=== PATIENT | female | born 1965 | race Caucasian/White ===

== ENCOUNTER → 2016-08-24 | Outpatient (CLI) | payer MEDICARE, BC ==
--- NOTE | 2016-08-24 20:56 | MR ---
EXAMINATION TYPE: MR lindaine/lspine wo con DATE OF EXAM: 08/24/2016 3:37 PM COMPARISON: 08/28/2014 HISTORY: 51-year-old female, neck pain, CERVICALGIA, LOW BACK PAIN TECHNIQUE: Multiplanar, multisequence images of the cervical followed by the lumbar spine were obtain ed without IV contrast. FINDINGS: CERVICAL SPINE: Mild mucosal thickening sphenoid sinus. No craniocervical junction abnormality, predental space widening, or prevertebral soft tissue swellin g. Multilevel mild degenerative disc disease with variable disc desiccation. Mild disc height loss at C5 -C6 with disc osteophyte complex formation. Scattered facet and uncovertebral joint arthropathy. Stable grade 1 retrolisthesis at C5-C6. Remainder of the alignment is maintained. Ligamentum flavum thickening lower cervical spine. No suspicious bone marrow replacement. At C2-C3, no significant spinal canal or neuroforaminal stenosis. At C3-C4, mild facet degenerative change without significant spinal canal or neuroforaminal stenosis. At C4-C5, mild facet degenerative change without significant spinal canal or neuroforaminal stenosis. At C5-C6, there is disc osteophyte complex with contiguous uncovertebral joint arthropathy. Additiona l facet degenerative change. Changes result in mild left neuroforaminal stenosis and mild spinal tamia l stenosis minimally increased from prior exam. There is slight abutment of the ventral cord without significant cord flattening. At C6-7, there is broad-based disc osteophyte complex with ligamentum flavum thickening, uncovertebra l joint and facet degenerative change. Changes result in mild narrowing of the spinal canal, minimall y worsened, with dorsal abutment of the cord but no significant cord flattening. No significant neuro foraminal stenosis. At C7-T1, mild facet degenerative change without significant spinal canal or neuroforaminal stenosis. No prevertebral or paravertebral soft tissue abnormality. Normal signal intensity of the cervical cord. LUMBAR SPINE: Vertebral body heights are preserved and alignment is maintained. Mild degenerative disc disease thro ughout, particularly at L2-L3, L3-L4 and L4-L5 where there is disc desiccation. Bulging disc that mul tiple levels. Facet degenerative change lower lumbar spine. No suspicious bone marrow replacement. Conus medullaris is normal. At T12-L1, no spinal canal or neuroforaminal stenosis. At L1-L2, no spinal canal or neuroforaminal stenosis. At L2-L3, there is mild diffuse disc bulge with similar right intraforaminal protrusion minimally heather rowing the inferior neuroforamen. No significant spinal canal or neuroforaminal stenosis. At L3-L4, mild disc bulge and mild facet degenerative change. No significant spinal canal or neurofor aminal stenosis. At L4-L5, facet degenerative change with mild disc bulge. Changes result in similar mild right neurof oraminal stenosis without spinal canal stenosis. At L5-S1, mild diffuse disc bulge with hypertrophic facet arthropathy. No significant spinal canal or neuroforaminal stenosis. No prevertebral or paravertebral soft tissue abnormality. COMBINED IMPRESSION: CERVICAL SPINE: 1. Mild to moderate multilevel degenerative disc disease along with facet and uncovertebral joint art hropathy. Additional ligamentum flavum thickening at C5-C6 and C6-C7. 2. Very slight interval worsening in mild spinal canal stenosis at C5-C6 and C6-C7. At C5-C6, there i s ventral abutment of the cord and at C6-C7, there is dorsal abutment of the cord but no significant cord flattening or cord compression. 3. Stable grade 1 retrolisthesis at C5-C6. 4. Mild left neuroforaminal stenosis at C5-C6. LUMBAR SPINE: 1. [id number] multilevel degenerative disc disease with desiccated and bulging discs. 2. Changes result in similar minimal inferior narrowing of the right L2-L3 neuroforamen. 3. At L4-L5, changes result in similar mild right neuroforaminal stenosis. 4. No spinal canal stenosis.
== END | disposition home or self-care (01) ==
LOC: RADMRIMAIN 14:23
PROVIDERS: ATTEND Psychiatry & Neurology Neurology
DX: M50.30 Other cervical disc degeneration, unspecified cervical region (principal); M46.92 Unspecified inflammatory spondylopathy, cervical region; M24.28 Disorder of ligament, vertebrae; M48.02 Spinal stenosis, cervical region; M51.36 Other intervertebral disc degeneration, lumbar region; M51.26 Other intervertebral disc displacement, lumbar region; M48.06 Spinal stenosis, lumbar region
CPT/HCPCS: 72141; 72148

== ENCOUNTER 2017-01-01 13:18 | Emergency (ER) | payer MEDICARE, BC ==
[2017-01-01 13:21] VITALS: RESP 18
[2017-01-01] MEDS ORDERED: SODIUM CHLORIDE 0.9% 1,000 ML IV STA (13:41)
--- NOTE | 2017-01-01 13:44 | ED ---
General Adult HPI - General Chief complaint: Abdominal Pain Stated complaint: Abd pain Time Seen by Provider: 01/01/17 13:30 Source: patient, RN notes reviewed Mode of arrival: ambulatory Limitations: no limitations - History of Present Illness Initial comments: Patient is a pleasant 51-year-old female presenting to the emergency department complaining of right-sided abdominal discomfort. Symptoms have been present for a couple of weeks. Patient states she has been blowing and off. Patient originally thought it may be related to her chronic back pain. Patient did take a Percocet prior to arrival. No fevers. Mild nausea. No vomiting. No constipation. Patient has mild diarrhea that is chronic. No history of similar symptoms previously. Discomfort is steady. - Related Data Home Medications Medication Instructions Recorded Confirmed ALPRAZolam [ALPRAZolam] 0.25 mg PO BID PRN 11/07/14 01/01/17 Ibuprofen [Motrin] 800 mg PO TID PRN 11/07/14 01/01/17 Omeprazole [Omeprazole] 20 mg PO DAILY 11/07/14 01/01/17 Albuterol Inhaler [Ventolin Hfa 2 puff INHALATION RT-Q6H PRN 01/21/16 01/01/17 Inhaler] Citalopram Hydrobromide [CeleXA] 40 mg PO DAILY 01/21/16 01/01/17 Furosemide [Lasix] 20 mg PO DAILY 01/21/16 01/01/17 Gemfibrozil [Lopid] 600 mg PO AC-BID 01/21/16 01/01/17 Isosorbide Mononitrate ER [Imdur] 30 mg PO DAILY 01/21/16 01/01/17 Tiotropium [place] [Spiriva] 1 cap INHALATION RT-DAILY 01/21/16 01/01/17 oxyCODONE HCL/ACETAMINOPHEN 1 tab PO TID PRN 01/21/16 01/01/17 [Percocet 7.5-325 mg] Gabapentin [Neurontin] 300 mg PO TID 01/01/17 01/01/17 Losartan [Cozaar] 50 mg PO DAILY 01/01/17 01/01/17 Metoprolol Tartrate [Lopressor] 37.5 mg PO BID 01/01/17 01/01/17 metFORMIN HCL 1,000 mg PO BID 01/01/17 01/01/17 Previous Rx's Medication Instructions Recorded Ciprofloxacin HCl [Cipro] 500 mg PO Q12HR #20 tablet 01/01/17 Allergies Allergy/AdvReac Type Severity Reaction Status Date / Time Iodinated Contrast- Oral and Allergy Unknown Verified 01/01/17 13:49 IV Dye valacyclovir Allergy Unknown Verified 01/01/17 13:49 Review of Systems ROS Statement: Those systems with pertinent positive or pertinent negative responses have been documented in the HPI. ROS Other: All systems not noted in ROS Statement are negative. Constitutional: Denies: fever Eyes: Denies: eye pain ENT: Denies: ear pain Respiratory: Denies: cough Cardiovascular: Denies: chest pain Endocrine: Denies: fatigue Gastrointestinal: Reports: abdominal pain, nausea. Denies: vomiting, constipation Genitourinary: Denies: dysuria Musculoskeletal: Reports: back pain (Chronic) Skin: Denies: rash Neurological: Denies: weakness Past Medical History Past Medical History: Chest Pain / Angina, COPD, Hyperlipidemia, Hypertension, Musculoskeletal Disorder, Supraventricular Tachycardia (SVT) Additional Past Medical History / Comment(s): 4 herniated discs - neck (1), thoracic (1), lumbar (2), djd History of Any Multi-Drug Resistant Organisms: None Reported Past Surgical History: Tubal Ligation Past Anesthesia/Blood Transfusion Reactions: No Reported Reaction Past Psychological History: Anxiety, Depression Smoking Status: Current every day smoker Past Alcohol Use History: Occasional Past Drug Use History: None Reported - Past Family History Mother Family Medical History: Thyroid Disorder Additional Family Medical History / Comment(s): goiter, hypothyroid General Exam Limitations: no limitations General appearance: alert, in no apparent distress Head exam: Present: atraumatic Eye exam: Present: normal appearance, PERRL ENT exam: Present: normal oropharynx Neck exam: Present: normal inspection Respiratory exam: Present: normal lung sounds bilaterally Cardiovascular Exam: Present: regular rate, normal rhythm Expanded Peripheral pulses: 2+: Dorsalis Pedis (R), Dorsalis Pedis (L) GI/Abdominal exam: Present: soft, tenderness (Minimal tenderness right lateral mid abdomen), normal bowel sounds. Absent: distended, guarding, rebound, rigid , pulsatile mass Extremities exam: Present: normal inspection Back exam: Present: normal inspection Neurological exam: Present: alert Psychiatric exam: Present: normal affect, normal mood Skin exam: Present: normal color Course Vital Signs 01/01/17 01/01/17 13:19 14:19 Temperature 98.0 F Pulse Rate 79 63 Respiratory 18 18 Rate Blood Pressure 118/59 103/64 O2 Sat by Pulse 98 98 Oximetry Procedures - Procedures Initial comment: Left upper abdomen with mild skin discoloration. Patient states she has a chronic cyst there. I was able to express approximately 2 mL of purulent discharge. Culture sent to lab. Medical Decision Making - Medical Decision Making Patient reexamined and resting comfortably in bed. Patient was updated on results and need for follow-up. - Lab Data Result diagrams: 01/01/17 13:30 01/01/17 13:30 Lab Results 01/01/17 01/01/17 01/01/17 Range/Units 13:30 13:30 13:30 WBC 15.4 H (3.8-10.6) k/uL RBC 4.40 (3.80-5.40) m/uL Hgb 13.1 (11.4-16.0) gm/dL Hct 39.5 (34.0-46.0) % MCV 89.6 (80.0-100.0) fL MCH 29.8 (25.0-35.0) pg MCHC 33.3 (31.0-37.0) g/dL RDW 13.3 (11.5-15.5) % Plt Count 393 (150-450) k/uL Neutrophils % 69 % Lymphocytes % 21 % Monocytes % 6 % Eosinophils % 2 % Basophils % 0 % Neutrophils # 10.7 H (1.3-7.7) k/uL Lymphocytes # 3.3 (1.0-4.8) k/uL Monocytes # 0.9 (0-1.0) k/uL Eosinophils # 0.2 (0-0.7) k/uL Basophils # 0.0 (0-0.2) k/uL PT (9.0-12.0) sec INR (<1.2) APTT (22.0-30.0) sec Sodium 141 (137-145) mmol/L Potassium 4.4 (3.5-5.1) mmol/L Chloride 106 (98-107) mmol/L Carbon Dioxide 23 (22-30) mmol/L Anion Gap 12 mmol/L BUN 14 (7-17) mg/dL Creatinine 1.03 (0.52-1.04) mg/dL Est GFR (MDRD) Af Amer >60 (>60 ml/min/1.73 sqM) Est GFR (MDRD) Non-Af 56 (>60 ml/min/1.73 sqM) Glucose 103 H (74-99) mg/dL Calcium 9.8 (8.4-10.2) mg/dL Total Bilirubin 0.5 (0.2-1.3) mg/dL AST 14 (14-36) U/L ALT 24 (9-52) U/L Alkaline Phosphatase 102 (38-126) U/L Total Protein 7.4 (6.3-8.2) g/dL Albumin 4.1 (3.5-5.0) g/dL Amylase <30 L (30-110) U/L Lipase 34 (23-300) U/L Urine Color Yellow Urine Appearance Turbid H (Clear) Urine pH 6.0 (5.0-8.0) Ur Specific [place] 1.015 (1.001-1.035) Urine Protein 1+ H (Negative) Urine Glucose (UA) Negative (Negative) Urine Ketones Negative (Negative) Urine Blood Moderate H (Negative) Urine Nitrite Negative (Negative) Urine Bilirubin Negative (Negative) Urine Urobilinogen <2.0 (<2.0) mg/dL Ur Leukocyte Esterase Large H (Negative) Urine RBC 15 H (0-5) /hpf Urine WBC >182 H (0-5) /hpf Urine WBC Clumps Many H (None) /hpf Ur Squamous Epith Cells 7 H (0-4) /hpf Urine Bacteria Many H (None) /hpf Hyaline Casts 20 H (0-2) /lpf Urine Mucus Rare H (None) /hpf 01/01/ Range/Units 13:30 WBC (3.8-10.6) k/uL RBC (3.80-5.40) m/uL Hgb (11.4-16.0) gm/dL Hct (34.0-46.0) % MCV (80.0-100.0) fL MCH (25.0-35.0) pg MCHC (31.0-37.0) g/dL RDW (11.5-15.5) % Plt Count (150-450) k/uL Neutrophils % % Lymphocytes % % Monocytes % % Eosinophils % % Basophils % % Neutrophils # (1.3-7.7) k/uL Lymphocytes # (1.0-4.8) k/uL Monocytes # (0-1.0) k/uL Eosinophils # (0-0.7) k/uL Basophils # (0-0.2) k/uL PT 10.5 (9.0-12.0) sec INR 1.0 (<1.2) APTT 25.8 (22.0-30.0) sec Sodium (137-145) mmol/L Potassium (3.5-5.1) mmol/L Chloride (98-107) mmol/L Carbon Dioxide (22-30) mmol/L Anion Gap mmol/L BUN (7-17) mg/dL Creatinine (0.52-1.04) mg/dL Est GFR (MDRD) Af Amer (>60 ml/min/1.73 sqM) Est GFR (MDRD) Non-Af (>60 ml/min/1.73 sqM) Glucose (74-99) mg/dL Calcium (8.4-10.2) mg/dL Total Bilirubin (0.2-1.3) mg/dL AST (14-36) U/L ALT (9-52) U/L Alkaline Phosphatase (38-126) U/L Total Protein (6.3-8.2) g/dL Albumin (3.5-5.0) g/dL Amylase (30-110) U/L Lipase (23-300) U/L Urine Color Urine Appearance (Clear) Urine pH (5.0-8.0) Ur Specific [place] (1.001-1.035) Urine Protein (Negative) Urine Glucose (UA) (Negative) Urine Ketones (Negative) Urine Blood (Negative) Urine Nitrite (Negative) Urine Bilirubin (Negative) Urine Urobilinogen (<2.0) mg/dL Ur Leukocyte Esterase (Negative) Urine RBC (0-5) /hpf Urine WBC (0-5) /hpf Urine WBC Clumps (None) /hpf Ur Squamous Epith Cells (0-4) /hpf Urine Bacteria (None) /hpf Hyaline Casts (0-2) /lpf Urine Mucus (None) /hpf - Radiology Data Radiology results: report reviewed (Computed tomography scan of the abdomen pelvis does show bladder wall thickening consistent with cystitis. there is right perinephric stranding. Focal skin thickening left upper abdomen. ) Disposition Clinical Impression: Pyelonephritis, Skin abscess Disposition: HOME SELF-CARE Condition: Stable Instructions: Kidney Infection (ED), Abscess (ED) Additional Instructions: Please follow-up to primary care physician in the next day or 2 for recheck. Return for increased pain, fevers, vomiting, worsening symptoms or other concerns. These have primary care physician check culture results from skin abscess as well as urine. Prescriptions: Ciprofloxacin HCl [Cipro] 500 mg PO Q12HR #20 tablet Referrals: Demetri Jordan MD [Primary Care Provider] - 1-2 days Time of Disposition: 15:07
[2017-01-01 13:52] LABS: Basophils % (A) 0 %; CH 30.2; CHCM 33.8; Eosinophils # (A) 0.2 k/uL (0-0.7); Eosinophils % (A) 2 %; HCT 39.5 % (34.0-46.0); HDW 2.71; HGB 13.1 gm/dL (11.4-16.0); Luc # (Auto) 0.34; Luc % (Auto) 2; Lymphocytes # (A) 3.3 k/uL (1.0-4.8); Lymphocytes % (A) 21 %; MCH 29.8 pg (25.0-35.0); MCHC 33.3 g/dL (31.0-37.0); MCV 89.6 fL (80.0-100.0); Mean Platelet Volume 8.9; Monocytes # (A) 0.9 k/uL (0-1.0); Monocytes % (A) 6 %; Neutrophils # (A) 10.7 k/uL (1.3-7.7); Neutrophils % (A) 69 %; RDW 13.3 % (11.5-15.5); WBC 15.4 k/uL (3.8-10.6); WBC (Perox) 15.37
[2017-01-01 13:56] LABS: Appearance,Urine Turbid (Clear); Bacteria,Urine Many /hpf; Bilirubin,Urine Negative (Negative); Glucose,Urine (UA) Negative (Negative); Ketones,Urine Negative (Negative); Leukocyte Esterase,Urine Large (Negative); Mucus,Urine Rare /hpf; Nitrite,Urine Negative (Negative); Particle Count 132602; Protein,Urine 1+ (Negative); RBC,Urine 15 /hpf (0-5); Specific Gravity,Urine 1.015 (1.001-1.035); Squamous Epithelial Cell,Urine 7 /hpf (0-4); UA Billing (MACRO vs. MICRO) MICRO; Urobilinogen,Urine <2.0 mg/dL (<2.0); WBC,Urine >182 /hpf (0-5)
[2017-01-01 14:00] LABS: ALT 24 U/L (9-52); AST 14 U/L (14-36); Alkaline Phosphatase 102 U/L (38-126); Amylase <30 U/L (30-110); Anion Gap 12 mmol/L; Blood Urea Nitrogen 14 mg/dL (7-17); Calcium 9.8 mg/dL (8.4-10.2); Carbon Dioxide 23 mmol/L (22-30); Chloride 106 mmol/L (98-107); Glucose 103 mg/dL (74-99); Non-African American GFR(MDRD) 56 (>60 ml/min/1.73 sqM); Potassium 4.4 mmol/L (3.5-5.1); Sodium 141 mmol/L (137-145); Total Bilirubin 0.5 mg/dL (0.2-1.3); Total Protein 7.4 g/dL (6.3-8.2)
[2017-01-01 14:19] LABS: Partial Thromboplastin Time 25.8 sec (22.0-30.0); Prothrombin Time 10.5 sec (9.0-12.0)
--- NOTE | 2017-01-01 14:39 | CT ---
EXAMINATION TYPE: CT abdomen pelvis wo con DATE OF EXAM: 01/01/2017 COMPARISON: NONE HISTORY: 51-year-old female Rt side abd pain CT DLP: 1731.7 mGycm. Automated exposure control for dose reduction was used. TECHNIQUE: Contiguous axial scanning of the abdomen and pelvis without IV contrast. Coronal and sagit jeannette reconstructions performed. FINDINGS: The heart is normal size without pericardial effusion. Nonspecific air cyst within the right lower lo be. No pleural effusion. There is a nonspecific focal skin thickening and reticulation in the heterog eneous fat layer along the left upper quadrant, axial image 8. There is low attenuation of the hepatic parenchyma. Noncontrast appearance of the gallbladder, adrena l glands, left kidney, spleen, and pancreas show no gross abnormal body. There is normal appendix noted. Mild scattered stool without pericolonic inflammatory change. No dilated small bowel, free fluid, or free air. There is perinephric stranding on the right without significant hydronephrosis. No renal calculi or s uspicious calcification is seen along the ureters. Tiny fatty umbilical hernia. No mesenteric or retroperitoneal lymphadenopathy. Bladder is under distended but shows mild circumferential wall thickening especially on sagittal and coronal series. Multiple pelvic phleboliths. Rectum appears normal. No abnormal fluid collection in t he pelvis or pelvic lymphadenopathy seen. Uterus and both ovaries are visualized. Bones: Degenerative changes at the SI joints. Sclerotic focus within the medial right iliac bone prob able bone island. No osseous destructive process. IMPRESSION: 1. Mild circumferential bladder wall thickening could represent cystitis. Clinically correlate. 2. Right-sided perinephric fat stranding/inflammation. Findings could represent pyelonephritis or se quela of a recently passed stone. Clinically correlate. 3. Incidentally, some focal skin thickening anteriorly along the left upper quadrant. Correlate to e xclude cellulitis. 4. Mild fatty liver.
[2017-01-01] MEDS ORDERED: LEVOFLOXACIN 750 MG TAB PO STA (15:06)
[2017-01-01 15:10] VITALS: BP 112/69; PULSE 67; TEMP 98.3
== END 2017-01-01 15:32 | disposition home or self-care (01) ==
LOC: EC 13:18
DX: N12 Tubulo-interstitial nephritis, not specified as acute or chronic (principal); L02.211 Cutaneous abscess of abdominal wall; N32.89 Other specified disorders of bladder; R19.7 Diarrhea, unspecified; E78.5 Hyperlipidemia, unspecified; I10 Essential (primary) hypertension; J44.9 Chronic obstructive pulmonary disease, unspecified; F32.9 Major depressive disorder, single episode, unspecified; F41.9 Anxiety disorder, unspecified; F17.200 Nicotine dependence, unspecified, uncomplicated; Z79.84 Long term (current) use of oral hypoglycemic drugs; Z79.899 Other long term (current) drug therapy; Z88.8 Allergy status to other drugs, medicaments and biological substances; Z91.041 Radiographic dye allergy status; Z86.79 Personal history of other diseases of the circulatory system
CPT/HCPCS: 36415; 74176; 80053; 81001; 82150; 83690; 85025; 85610; 85730; 87070; 87077; 87086; 87186; 87205; 96360; 99284

== ENCOUNTER → 2018-07-13 | Outpatient (CLI) | payer MEDICARE, BC ==
--- NOTE | 2018-07-13 11:01 | FL ---
EXAMINATION TYPE: FL barium swallow DATE OF EXAM: 07/13/2018 CLINICAL HISTORY: Dysphagia and globus sensation for 2 to 3 months. TECHNIQUE: A double contrast esophagram is performed utilizing air and barium. A total of 1 minute 36 seconds of fluoroscopic time was utilized during procedure. 41 fluoroscopic images were saved. COMPARISON: None FINDINGS: At patient's described area of delayed swallowing there is slight delay of contrast such as on image 15/41 with posterior impression on the esophagus from a small anterior osteophyte projectin g from the inferior endplate of C6. This persists throughout the exam such as on image 19/41 with min imally delayed passage. A small hiatal hernia is seen with mild resultant gastroesophageal reflux suc h as on images 04/07 and . This is seen to the level of distal third of the esophagus. No str icture is identified. IMPRESSION: 1. Small anterior projecting osteophyte from the inferior endplate of C6 creates mild delay of contra st propulsion in the upper esophagus persistently throughout the examination corresponding the patien t's area of globus sensation. 2. Small hiatal hernia with mild resultant gastroesophageal reflux.
== END | disposition home or self-care (01) ==
LOC: RADFLWHC 09:20
PROVIDERS: ATTEND Otolaryngology
DX: K21.9 Gastro-esophageal reflux disease without esophagitis (principal); K44.9 Diaphragmatic hernia without obstruction or gangrene
CPT/HCPCS: 74220

== ENCOUNTER → 2018-07-20 | Outpatient (CLI) | payer MEDICARE, BC ==
--- NOTE | 2018-07-24 09:20 | MM ---
Reason for exam: screening (asymptomatic). Last mammogram was performed 2 years and 9 months ago. History: Patient is postmenopausal. Benign US right guided VAD of the right breast, June 30, 2009. Took hormonal contraceptives for 10 years beginning at age 39. Physical Findings: A clinical breast exam by your physician is recommended on an annual basis and results should be correlated with mammographic findings. MG 3D Screening Mammo W/Cad Bilateral CC and MLO view(s) were taken. Prior study comparison: October 22, 2015, bilateral MG 3d screening mammo w/cad. April 10, 2014, bilateral MG screening mammo w CAD. There are scattered fibroglandular densities. Previous mammotome biopsy in the right breast. Left upper outer quadrant focal asymmetry appears more defined and incompletely disperses on 3D images. ASSESSMENT: Incomplete: need additional imaging evaluation, BI-RAD 0 RECOMMENDATION: Special view mammogram of the left breast. If lesion persists on supplemental views, image directed ultrasound is recommended. [facility] will attempt to contact patient to return for supplemental views and ultrasound if indicated.
== END | disposition home or self-care (01) ==
LOC: RADMAMWWP 13:40
PROVIDERS: ATTEND Internal Medicine
DX: Z12.31 Encounter for screening mammogram for malignant neoplasm of breast (principal)
CPT/HCPCS: 77063; 77067

== ENCOUNTER → 2018-08-10 | Outpatient (CLI) | payer MEDICARE, BC ==
--- NOTE | 2018-08-10 11:07 | MM ---
Reason for exam: additional evaluation requested from abnormal screening. Last mammogram was performed 1 month ago. History: Patient is postmenopausal. Benign US right guided VAD of the right breast, June 30, 2009. Took hormonal contraceptives for 10 years beginning at age 39. Physical Findings: Nurse did not find any significant physical abnormalities on exam. MG 3D Work Up W/Cad LT Spot compression CC, spot compression MLO, and LM view(s) were taken of the left breast. Prior study comparison: July 20, 2018, bilateral MG 3d screening mammo w/cad. October 22, 2015, bilateral MG 3d screening mammo w/cad. There are scattered fibroglandular densities. Benign calcifications in the left breast. There is chronic nodularity in the left breast. No significant new findings when compared with previous films. These results were verbally communicated with the patient and result sheet given to the patient on 08/10/18. ASSESSMENT: Probably benign, BI-RAD 3 RECOMMENDATION: Follow-up diagnostic mammogram of the left breast in 6 months.
== END | disposition home or self-care (01) ==
LOC: RADMAMWWP 10:24
PROVIDERS: ATTEND Internal Medicine
DX: R92.8 Other abnormal and inconclusive findings on diagnostic imaging of breast (principal)
CPT/HCPCS: 77065; G0279; 77061

== ENCOUNTER → 2021-04-22 | Outpatient (CLI) | payer MEDICARE, BC ==
--- NOTE | 2021-04-26 09:59 | MM ---
Reason for exam: screening (asymptomatic). Last mammogram was performed 2 years and 8 months ago. History: Patient is postmenopausal. Benign US right guided VAD of the right breast, June 30, 2009. Took hormonal contraceptives for 10 years beginning at age 39. Physical Findings: A clinical breast exam by your physician is recommended on an annual basis and results should be correlated with mammographic findings. MG 3D Screening Mammo W/Cad Bilateral CC and MLO view(s) were taken. Prior study comparison: August 10, 2018, left breast MG 3d work up w/cad LT. July 20, 2018, bilateral MG 3d screening mammo w/cad. There are scattered fibroglandular densities. Previous mammotome biopsy in the right breast. There is chronic nodularity in the left breast. There is no discrete abnormality. ASSESSMENT: Benign, BI-RAD 2 RECOMMENDATION: Routine screening mammogram of both breasts in 1 year.
== END | disposition home or self-care (01) ==
LOC: RADMAMWWP 15:53
PROVIDERS: ATTEND Family Medicine
DX: Z12.31 Encounter for screening mammogram for malignant neoplasm of breast (principal); Z78.0 Asymptomatic menopausal state
CPT/HCPCS: 77063; 77067

== ENCOUNTER 2021-07-12 13:58 | Emergency (ER) | payer MEDICARE ==
[2021-07-12 14:17] VITALS: TEMP 98.6
--- NOTE | 2021-07-12 14:38 | XR ---
EXAMINATION TYPE: XR shoulder complete RT DATE OF EXAM: 07/12/2021 CLINICAL HISTORY: pain TECHNIQUE: Three views of the right shoulder are obtained. COMPARISON: None FINDINGS: There is no acute fracture/dislocation evident. Calcification involving the supraspinatus tendon compatible with calcific tendinopathy. The acromioclavicular and glenohumeral joint spaces wero ear mildly narrowed. The visualized ribs are intact and unremarkable. IMPRESSION: 1. There is no acute fracture or dislocation. ICD 10 NO FRACTURE, INITIAL EVALUATION
[2021-07-12] MEDS ORDERED: KETOROLAC 30 MG/ML 1 ML VIAL IVP STA (16:55)
[2021-07-12] MEDS ORDERED: HYDROmorphone 1 MG/ML 1 ML SYRINGE IVP STA (16:55)
[2021-07-12 17:30] LABS: Basophils % (A) 0 %; Eosinophils # (A) 0.3 k/uL (0-0.7); Eosinophils % (A) 2 %; HCT 41.9 % (34.0-46.0); HGB 13.9 gm/dL (11.4-16.0); Lymphocytes # (A) 2.9 k/uL (1.0-4.8); Lymphocytes % (A) 22 %; MCH 31.8 pg (25.0-35.0); MCHC 33.2 g/dL (31.0-37.0); MCV 95.5 fL (80.0-100.0); Mean Platelet Volume 9.4; Monocytes # (A) 0.7 k/uL (0-1.0); Monocytes % (A) 6 %; Neutrophils # (A) 8.9 k/uL (1.3-7.7); Neutrophils % (A) 69 %; Platelet Count 247 k/uL (150-450); RBC 4.39 m/uL (3.80-5.40)
[2021-07-12 17:37] VITALS: BP 130/95; PULSE 77; RESP 20
[2021-07-12 18:09] LABS: Carbon Dioxide 24 mmol/L (22-30); Chloride 106 mmol/L (98-107); Glucose 96 mg/dL (74-99); Potassium 4.2 mmol/L (3.5-5.1); Sodium 137 mmol/L (137-145)
[2021-07-12 18:10] LABS: ALT 7 U/L (4-34); AST 18 U/L (14-36); African American GFR (CKD) >90 (>60 ml/min/1.73 sqM); Albumin 4.3 g/dL (3.5-5.0); Alkaline Phosphatase 132 U/L (38-126); Anion Gap 7 mmol/L; Blood Urea Nitrogen 16 mg/dL (7-17); C Reactive Protein 2.6 mg/dL (<1.0); Non-African American GFR(CKD) 80 (>60 ml/min/1.73 sqM); Total Bilirubin 0.6 mg/dL (0.2-1.3); Total Protein 7.4 g/dL (6.3-8.2)
[2021-07-12] MEDS ORDERED: HYDROmorphone 0.5 MG/0.5 ML SYRINGE IVP STA (18:24)
--- NOTE | 2021-07-12 18:24 | ED ---
General Adult HPI - General Chief complaint: Extremity Injury, Upper Stated complaint: right arm pain Time Seen by Provider: 07/12/21 17:00 Source: patient, RN notes reviewed, old records reviewed Mode of arrival: ambulatory - History of Present Illness Initial comments: This a 56-year-old female presents emergency Department complaining of right shoulder pain. Patient states on she was cleaning snow off of her car and when she went in her shoulder in the surrounding muscles in the trapezius in the arm or sore but later that night the pain got conservative worse and ever since then it's been difficult to move that shoulder in any direction. Patient denies any direct injury or blunt trauma. Patient states she's had no redness no swelling no fever. Patient states she's taken muscle relaxants pain medicine and anti-inflammatories and the pain still her so she decided to come to the emergency department. Patient denies any other symptoms at this time. Patient denies any new neck pain. Patient denies any chest pain difficulty breathing shortness of breath. Patient denies any fever chills or cough. - Related Data Home Medications Medication Instructions Recorded Confirmed ALPRAZolam 0.25 mg PO BID PRN 11/07/14 01/01/17 Ibuprofen [Motrin] 800 mg PO TID PRN 11/07/14 01/01/17 Omeprazole 20 mg PO DAILY 11/07/14 01/01/17 Albuterol Inhaler (Mhu) [Ventolin 2 puff INHALATION RT-Q6H PRN 01/21/16 01/01/17 Hfa Inhaler] Citalopram Hydrobromide [CeleXA] 40 mg PO DAILY 01/21/16 01/01/17 Furosemide [Lasix] 20 mg PO DAILY 01/21/16 01/01/17 Isosorbide Mononitrate ER [Imdur] 30 mg PO DAILY 01/21/16 01/01/17 Tiotropium Rogers [Spiriva] 1 cap INHALATION RT-DAILY 01/21/16 01/01/17 gemfibroziL [Lopid] 600 mg PO AC-BID 01/21/16 01/01/17 oxyCODONE HCL/ACETAMINOPHEN 1 tab PO TID PRN 01/21/16 01/01/17 [Percocet 7.5-325 mg] Gabapentin [Neurontin] 300 mg PO TID 01/01/17 01/01/17 Losartan [Cozaar] 50 mg PO DAILY 01/01/17 01/01/17 Metoprolol Tartrate [Lopressor] 37.5 mg PO BID 01/01/17 01/01/17 metFORMIN HCL [Glucophage] 1,000 mg PO BID 01/01/17 01/01/17 Previous Rx's Medication Instructions Recorded Ciprofloxacin HCl [Cipro] 500 mg PO Q12HR #20 tablet 01/01/17 Ketorolac [Toradol] 10 mg PO Q6HR #15 tab 07/12/21 Allergies Allergy/AdvReac Type Severity Reaction Status Date / Time Iodinated Contrast Media Allergy Unknown Verified 07/12/21 14:17 [Iodinated Contrast- Oral and IV Dye] valacyclovir Allergy Unknown Verified 07/12/21 14:17 Review of Systems ROS Statement: Those systems with pertinent positive or pertinent negative responses have been documented in the HPI. ROS Other: All systems not noted in ROS Statement are negative. Past Medical History Past Medical History: Chest Pain / Angina, COPD, Hyperlipidemia, Hypertension, Musculoskeletal Disorder, Supraventricular Tachycardia (SVT) Additional Past Medical History / Comment(s): 4 herniated discs - neck (1), thoracic (1), lumbar (2), djd History of Any Multi-Drug Resistant Organisms: None Reported Past Surgical History: Tubal Ligation Past Anesthesia/Blood Transfusion Reactions: No Reported Reaction Past Psychological History: Anxiety, Depression Smoking Status: Current every day smoker Past Alcohol Use History: Occasional Past Drug Use History: Marijuana - Past Family History Mother Family Medical History: Thyroid Disorder Additional Family Medical History / Comment(s): goiter, hypothyroid General Exam - General Exam Comments Initial Comments: GENERAL: Patient is well-developed and well-nourished. Patient is nontoxic and well- hydrated and is in mild distress. ENT: Neck is soft and supple. No significant lymphadenopathy is noted. Oropharynx is clear. Moist mucous membranes. Neck has full range of motion without eliciting any pain. EYES: The sclera were anicteric and conjunctiva were pink and moist. Extraocular movements were intact and pupils were equal round and reactive to light. Eyelids were unremarkable. PULMONARY: Unlabored respirations. Good breath sounds bilaterally. No audible rales rhonchi or wheezing was noted. CARDIOVASCULAR: There is a regular rate and rhythm without any murmurs gallops or rubs. SKIN: Skin is clear with no lesions or rashes and otherwise unremarkable. NEUROLOGIC: Patient is alert and oriented x3. Cranial nerves II through XII are grossly intact. Motor and sensory are also intact. Normal speech, volume and content. Symmetrical smile. MUSCULOSKELETAL: Patient had full range of motion of the wrist and elbow. Arm had no swelling or redness. However moving the arm external rotation or internal rotation or flexing or extending the shoulder causes significant pain. LYMPHATICS: No significant lymphadenopathy is noted PSYCHIATRIC: Normal psychiatric evaluation. Course Vital Signs 07/12/21 07/12/21 14:13 17:24 Temperature 98.6 F Pulse Rate 63 77 Respiratory 18 20 Rate Blood Pressure 141/80 130/95 O2 Sat by Pulse 97 96 Oximetry Medical Decision Making - Medical Decision Making X-ray showed no acute abnormality. Patient states she will follow-up with orthopedics. - Lab Data Result diagrams: 07/12/21 17:18 07/12/21 17:37 Lab Results 07/12/21 07/12/21 Range/Units 17:18 17:37 WBC 13.0 H (3.8-10.6) k/uL RBC 4.39 (3.80-5.40) m/uL Hgb 13.9 (11.4-16.0) gm/dL Hct 41.9 (34.0-46.0) % MCV 95.5 (80.0-100.0) fL MCH 31.8 (25.0-35.0) pg MCHC 33.2 (31.0-37.0) g/dL RDW 13.0 (11.5-15.5) % Plt Count 247 (150-450) k/uL MPV 9.4 Neutrophils % 69 % Lymphocytes % 22 % Monocytes % 6 % Eosinophils % 2 % Basophils % 0 % Neutrophils # 8.9 H (1.3-7.7) k/uL Lymphocytes # 2.9 (1.0-4.8) k/uL Monocytes # 0.7 (0-1.0) k/uL Eosinophils # 0.3 (0-0.7) k/uL Basophils # 0.0 (0-0.2) k/uL Sodium 137 (137-145) mmol/L Potassium 4.2 (3.5-5.1) mmol/L Chloride 106 (98-107) mmol/L Carbon Dioxide 24 (22-30) mmol/L Anion Gap 7 mmol/L BUN 16 (7-17) mg/dL Creatinine 0.82 (0.52-1.04) mg/dL Est GFR (CKD-EPI)AfAm >90 (>60 ml/min/1.73 sqM) Est GFR (CKD-EPI)NonAf 80 (>60 ml/min/1.73 sqM) Glucose 96 (74-99) mg/dL Calcium 10.0 (8.4-10.2) mg/dL Total Bilirubin 0.6 (0.2-1.3) mg/dL AST 18 (14-36) U/L ALT 7 (4-34) U/L Alkaline Phosphatase 132 H (38-126) U/L C-Reactive Protein 2.6 H (<1.0) mg/dL Total Protein 7.4 (6.3-8.2) g/dL Albumin 4.3 (3.5-5.0) g/dL Disposition Clinical Impression: Strain of shoulder Disposition: HOME SELF-CARE Condition: Good Instructions (If sedation given, give patient instructions): Shoulder Sprain (ED) Additional Instructions: Patient should not take any Motrin while she is on Toradol. Prescriptions: Ketorolac [Toradol] 10 mg PO Q6HR #15 tab Is patient prescribed a controlled substance at d/c from ED?: No Referrals: Donald Alberto MD [STAFF PHYSICIAN] - 1-2 days Time of Disposition: 18:22
== END 2021-07-12 18:35 | disposition home or self-care (01) ==
LOC: EC 13:58
DX: S46.911A Strain of unspecified muscle, fascia and tendon at shoulder and upper arm level, right arm, initial encounter (principal); I10 Essential (primary) hypertension; J44.9 Chronic obstructive pulmonary disease, unspecified; E78.5 Hyperlipidemia, unspecified; F32.A Depression, unspecified; F41.9 Anxiety disorder, unspecified; F17.200 Nicotine dependence, unspecified, uncomplicated; F12.90 Cannabis use, unspecified, uncomplicated; Z79.84 Long term (current) use of oral hypoglycemic drugs; Z79.51 Long term (current) use of inhaled steroids; Z79.899 Other long term (current) drug therapy; X58.XXXA Exposure to other specified factors, initial encounter
CPT/HCPCS: 36415; 80053; 85025; 86140; 87040; 73030; 99283; 96374; 96375; 96376; J1885; J1170 ×2

== ENCOUNTER → 2022-04-13 | Outpatient (CLI) | payer MEDICARE ==
--- NOTE | 2022-04-13 16:38 | BD ---
EXAMINATION TYPE: Axial Bone Density DATE OF EXAM: 04/13/2022 COMPARISON: NONE CLINICAL HISTORY: 56 years year old Female. ICD-10 CODE: M81.0 AGE-RELATED OSTEOPOROSIS Height: 5ft 7in Weight: 215.7 FRAX RISK QUESTIONS: Alcohol (3 or more units per day): NO Family History (Parent hip fracture): YES Glucocorticoids (More than 3mos): NO (Ex: prednisone, prednisolone, methylprednisolone, dexamethasone, and hydrocortisone). History of Fracture in Adulthood: NO Secondary Osteoporosis: NO 1. Type 1 Diabetes: TYPE 2 2. Hyperthyroidism: NO 3. Menopause before 45: NO 4. Malnutrition: YES, COLITIS 5. Chronic liver disease: NO Rheumatoid Arthritis: NO Current Tobacco Use: YES RISK FACTORS HISTORY OF: Family History of Osteoporosis: NO Active: NO Diet low in dairy products/other sources of calcium: NO Postmenopausal woman: YES Lost more than 2 inches in height since high school: YES Frequent falls: YES Poor Health: FAIR Hyperparathyroidism: NO Adrenal Insufficiency: NO MEDICATIONS: Additional Medications: TRULICITY, ISOSORBIDE (HEART), BLOOD PRESSURE, PERCOCET, CHOLESTEROL, OMEPRAZ OLE, WATER PILL Additional History: EXAM MEASUREMENTS: Bone mineral densitometry was performed using the [employer]. Bone mineral density as measured about the Lumbar spine is: ----- L1-L4(G/cm2): 1.101 T Score Values are as follows: ----- L1: -0.9 ----- L2: -1.4 ----- L3: -0.1 ----- L4: -0.6 ----- L1-L4: -0.7 BASELINE Bone mineral density about the R hip (g/cm2): 0.910 Bone mineral density about the L hip (g/cm2): 0.870 T Score values are as follows: -----R Neck: -0.9 -----L Neck: -1.2 -----R Total: -0.5 -----L Total: -0.7 BASELINE FRAX%s: The graph provided illustrates a 12.5% chance for a major osteoporotic fx and a 0.7% chance f or the hips probability for fx in 10 years time. IMPRESSION: Osteopenia (T Score between -2.5 and -1) at the femoral neck level left hip. There is slightly increased risk of fracture and the patient may be considered for treatment. Re-Screen 2-5 years. NOTE: T-SCORE=SD OF THE YOUNG ADULT MEAN.
--- NOTE | 2022-04-14 14:02 | MM ---
Reason for Exam: Screening (asymptomatic). Last screening mammogram was performed 12 month(s) ago. Patient History: Menarche at age 11. First Full-Term at age 16. Postmenopausal. Hormonal Contraceptives for 10 years from age 39 until age 49. 06/30/2009, Benign Core Biopsy on the right side. Risk Values: Flaquita 5 year model risk: 1.1%. NCI Lifetime model risk: 6.7%. Prior Study Comparison: 04/26/2011 Bilateral Diagnostic Mammogram, [facility]. 04/08/2013 Bilateral Diagnostic Mammogram, [facility]. 04/10/2014 Bilateral Screening Mammogram, [facility]. 10/22/2015 Bilateral Screening Mammogram, [facility]. 07/20/2018 Bilateral Screening Mammogram, [facility]. 08/10/2018 Left Diagnostic Mammogram, [facility]. 04/22/2021 Bilateral Screening Mammogram, [facility]. Tissue Density: There are scattered fibroglandular densities. Findings: Analyzed By CAD. Pattern is stable. Chronic nodularity is within the posterior left outer breast. No significant interval change. No suspicious groups of microcalcifications, spiculated or lobular masses, architectural distortion or other secondary signs of malignancy are mammographically apparent. Overall Assessment: Benign, BI-RAD 2 Management: Screening Mammogram of both breasts in 1 year. A negative mammogram report should not preclude additional follow up of suspicious palpable abnormalities. Patient should continue monthly self breast exam. A clinical breast exam by your physician is recommended on an annual basis and results should be correlated with mammographic findings. Electronically signed and approved by: Jermaine Somers D.O. Radiologis
== END | disposition home or self-care (01) ==
LOC: RADMAMWWP 13:47
PROVIDERS: ATTEND Family Medicine
DX: Z00.00 Encounter for general adult medical examination without abnormal findings (principal); Z12.31 Encounter for screening mammogram for malignant neoplasm of breast; M85.89 Other specified disorders of bone density and structure, multiple sites; Z78.0 Asymptomatic menopausal state
CPT/HCPCS: 77063; 77067; 77080

== ENCOUNTER → 2023-04-17 | Outpatient (CLI) | payer MEDICARE ==
--- NOTE | 2023-04-18 09:00 | MM ---
Reason for Exam: Screening (asymptomatic). Last screening mammogram was performed 12 month(s) ago. Patient History: Menarche at age 11. First Full-Term at age 16. Postmenopausal. Hormonal Contraceptives for 10 years from age 39 until age 49. 06/30/2009, Benign Core Biopsy on the right side. Maternal grandmother had ovarian cancer, age 82. Risk Values: Flaquita 5 year model risk: 1.1%. NCI Lifetime model risk: 6.6%. Prior Study Comparison: 08/10/2018 Left Diagnostic Mammogram, [facility]. 04/22/2021 Bilateral Screening Mammogram, [facility] 04/13/2022 Bilateral MG 3D screening mammo w/cad, [facility]. Tissue Density: The breast tissue is heterogeneously dense. This may lower the sensitivity of mammography. Findings: Analyzed By CAD. There is no suspicious group of microcalcifications or new suspicious mass in either breast. Overall Assessment: Benign, BI-RAD 2 Management: Screening Mammogram of both breasts in 1 year. . Patient should continue monthly self-breast exams. A clinical breast exam by your physician is recommended on an annual basis. This exam should not preclude additional follow-up of suspicious palpable abnormalities. Note on Flaquita scores and lifetime risk: 1. A Flaquita score greater than 3% is considered moderate risk. If this is the case, consider specialist referral to assess eligibility for a risk reducing agent. 2. If overall lifetime risk for the development of breast cancer is 20% or higher, the patient may qualify for future screening with alternating mammogram and breast MRI. Electronically signed and approved by: Steve Phillips M.D. Radiologis
== END | disposition home or self-care (01) ==
LOC: RADMAMWWP 13:11
PROVIDERS: ATTEND Family Medicine
DX: Z12.31 Encounter for screening mammogram for malignant neoplasm of breast (principal); Z78.0 Asymptomatic menopausal state
CPT/HCPCS: 77063; 77067

== ENCOUNTER → 2024-08-26 | Outpatient (CLI) | payer MEDICARE ==
--- NOTE | 2024-08-26 13:27 | MM ---
Reason for Exam: Screening (asymptomatic). Last mammogram was performed 1 year(s) and 4 month(s) ago. Patient History: Menarche at age 11. First Full-Term at age 16. Postmenopausal. Hormonal Contraceptives for 10 years from age 39 until age 49. 06/30/2009, Benign Core Biopsy on the right side. Maternal grandmother had ovarian cancer, age 82. Risk Values: Flaquita 5 year model risk: 1.2%. NCI Lifetime model risk: 6.3%. Prior Study Comparison: 04/22/2021 Bilateral Screening Mammogram, [facility]. 04/13/2022 Bilateral MG 3D screening mammo w/cad, [facility]. 04/17/2023 Bilateral MG 3D screening mammo w/cad, [facility]. Tissue Density: There are scattered areas of fibroglandular density. Findings: Analyzed By CAD. There is no suspicious group of microcalcifications or new suspicious mass in either breast. Benign calcifications. Chronic nodularity Overall Assessment: Benign, BI-RAD 2 Management: Screening Mammogram of both breasts in 1 year. . Patient should continue monthly self-breast exams. A clinical breast exam by your physician is recommended on an annual basis. This exam should not preclude additional follow-up of suspicious palpable abnormalities. Note on Flaquita scores and lifetime risk: 1. A Flaquita score greater than 3% is considered moderate risk. If this is the case, consider specialist referral to assess eligibility for a risk reducing agent. 2. If overall lifetime risk for the development of breast cancer is 20% or higher, the patient may qualify for future screening with alternating mammogram and breast MRI. [facility], , 08/26/2024 1:24 PM. Electronically signed and approved by: Tom Ivey M.D. Radiologis
== END | disposition home or self-care (01) ==
LOC: RADMAMWWP 12:58
PROVIDERS: ATTEND Student in an Organized Health Care Education/Training Program
DX: Z12.31 Encounter for screening mammogram for malignant neoplasm of breast (principal); R92.323 Mammographic fibroglandular density, bilateral breasts; Z78.0 Asymptomatic menopausal state; Z92.0 Personal history of contraception
CPT/HCPCS: 77063; 77067